=== PATIENT | male | born 1965 | race African-American/Black ===

== ENCOUNTER 2020-07-05 09:20 | Inpatient (IN) | payer MEDICARE, MEDICAID ==
[2020-07-05] MEDS ORDERED: Nitroglycerin 2% Ointment 1 INCH/1 GM Packet ONE (10:33)
[2020-07-05 10:39] LABS: #Eosinphils 0.4 10x3/uL (0.0-0.5); #Monocytes 0.3 10x3/uL (0.0-1.1); #Neutrophils 2.7 10x3/uL (1.5-8.4); %Basophils 0.9 % (0.0-2.0); %Eosinophils 8.3 % (0.0-6.0); %Lymphocytes 25.1 % (18.0-47.0); %Monocytes 5.9 % (0.0-10.0); %Neutrophils 59.6 % (40.0-75.0); Hemoglobin 7.5 g/dL (13.5-17.5); Mean Corpuscular HGB CONC 32.2 g/dL (32.0-36.0); Mean Corpuscular Hemoglobin 27.9 pg (27.0-33.0); Mean Corpuscular Volume 86.6 fl (81.2-95.1); Mean Platelet Volume 10.3 fl (7.4-10.4); Platelet Count 128 10x3/uL (150-450); RBC Distribution Width 16.7 % (11.5-14.5); Red Blood Cell (RBC) Count 2.69 10x6/uL (4.32-5.72); White Blood Cell (WBC) Count 4.6 10x3/uL (3.5-10.5)
[2020-07-05 10:51] LABS: ALT (SGPT) 6 U/L (8-55); AST (SGOT) 18 U/L (5-34); Albumin 3.7 g/dL (3.5-5.0); Alkaline Phosphatase 86 U/L (40-110); Anion Gap 16 mmol/L (10-20); BUN (Urea Nitrogen) 24 mg/dL (8.4-25.7); Bilirubin, Total 0.9 mg/dL (0.2-1.2); Calc. Creatinine Clearance 0 mL/min (70-130); Calcium 9.2 mg/dL (7.8-10.44); Carbon Dioxide 33 mmol/L (22-29); Chloride 91 mmol/L (98-107); Globulin 4.1 g/dL (2.4-3.5); Glucose 66 mg/dL (70-105); Protein, Total 7.8 g/dL (6.0-8.3); Sodium 136 mmol/L (136-145)
[2020-07-05 11:15] LABS: CKMB 3.2 ng/mL (0-6.6)
[2020-07-05] MEDS ORDERED: Furosemide 40 MG/4 ML VIAL ONE (12:27)
[2020-07-05] MEDS ORDERED: Aspirin Chewable 81 MG TAB ONE (12:27)
[2020-07-05] MEDS ORDERED: Magnesium Citrate 300 ML BOT ONE (12:49)
[2020-07-05] MEDS ORDERED: Acetaminophen 325 MG TAB PO PRN (13:17)
[2020-07-05] MEDS ORDERED: Senokot S 8.6-50 MG TAB PO PRN (13:17)
[2020-07-05] MEDS ORDERED: Ondansetron PF 4 MG/2 ML Vial IVP PRN (13:17)
[2020-07-05] MEDS ORDERED: HYDROcodone/Acetaminophen 10/325 mg Tablet PO PRN (13:22)
[2020-07-05 14:45] LABS: SARS-CoV-2 NAA Rapid Test Not Detected (NotDetected)
[2020-07-05 16:00] LABS: Troponin I 0.137 ng/mL (< 0.028)
[2020-07-05] MEDS ORDERED: Heparin 10,000 UNITS/ 10 ML VIAL FS PRN (16:33)
[2020-07-05 16:40] VITALS: BMI 19.9
[2020-07-05] MEDS ORDERED: diphenhydrAMINE 25 MG CAP PO PRN (17:31)
[2020-07-05 19:08] LABS: Troponin I 0.142 ng/mL (< 0.028)
[2020-07-05] MEDS: hydrALAZINE 25 MG TAB PO SCH ×2 (21:27→21:29)
[2020-07-06] MEDS ORDERED: hydrALAZINE 20 MG/ML VIAL SLOW IVP SCH (04:45)
[2020-07-06 05:45] LABS: #Basophils 0.1 10x3/uL (0.0-0.2); #Eosinphils 0.4 10x3/uL (0.0-0.5); #Monocytes 0.2 10x3/uL (0.0-1.1); #Neutrophils 1.9 10x3/uL (1.5-8.4); %Basophils 1.4 % (0.0-2.0); %Eosinophils 10.7 % (0.0-6.0); %Lymphocytes 26.6 % (18.0-47.0); %Monocytes 6.9 % (0.0-10.0); %Neutrophils 54.1 % (40.0-75.0); Hemoglobin 7.5 g/dL (13.5-17.5); Mean Corpuscular HGB CONC 32.1 g/dL (32.0-36.0); Mean Corpuscular Hemoglobin 27.7 pg (27.0-33.0); Mean Corpuscular Volume 86.3 fl (81.2-95.1); Mean Platelet Volume 11.1 fl (7.4-10.4); Platelet Count 135 10x3/uL (150-450); RBC Distribution Width 16.4 % (11.5-14.5); Red Blood Cell (RBC) Count 2.71 10x6/uL (4.32-5.72); White Blood Cell (WBC) Count 3.5 10x3/uL (3.5-10.5)
[2020-07-06] MEDS ORDERED: Magnesium Citrate 300 ML BOT PO SCH (05:45)
[2020-07-06 06:02] LABS: ALT (SGPT) 6 U/L (8-55); AST (SGOT) 17 U/L (5-34); Albumin 3.3 g/dL (3.5-5.0); Alkaline Phosphatase 78 U/L (40-110); Anion Gap 15 mmol/L (10-20); BUN (Urea Nitrogen) 14 mg/dL (8.4-25.7); Bilirubin, Total 0.7 mg/dL (0.2-1.2); Calc. Creatinine Clearance 14 mL/min (70-130); Carbon Dioxide 30 mmol/L (22-29); Chloride 94 mmol/L (98-107); Glucose 86 mg/dL (70-105); Potassium 3.9 mmol/L (3.5-5.1); Protein, Total 7.3 g/dL (6.0-8.3); Sodium 135 mmol/L (136-145)
[2020-07-06] MEDS ORDERED: NIFEdipine XL 30 MG TAB PO SCH (07:30)
[2020-07-06] MEDS ORDERED: Bisacodyl 5 MG TAB PO PRN (08:25)
[2020-07-06] MEDS ORDERED: Mineral Oil ENEMA PR SCH (09:00)
[2020-07-06] MEDS ORDERED: Amlodipine 10 MG TAB PO SCH (09:00)
[2020-07-06] MEDS: Lisinopril 20 MG TAB PO SCH (09:32)
[2020-07-06] MEDS: Enoxaparin Sodium 30 MG/0.3 ML SYRINGE SC SCH (09:35)
[2020-07-06] MEDS ORDERED: Sodium Bicarbonate 2.5 MEQ/5 ML VIAL ONE (13:58)
[2020-07-06] MEDS ORDERED: Lidocaine 1% PF 5 ML VIAL ONE (13:59)
[2020-07-06] MEDS: hydrALAZINE 20 MG/ML VIAL SLOW IVP PRN (16:54)
[2020-07-06] MEDS ORDERED: Polyethylene Glycol 3350 17 GM Packet PO PRN (17:16)
[2020-07-06] MEDS: NIFEdipine XL 30 MG TAB PO SCH (19:35)
[2020-07-06] MEDS: Docusate 100 MG CAP PO SCH (21:03)
[2020-07-06 21:29] LABS: Pleural Fluid, Protein 3.3 g/dL
[2020-07-07] MEDS ORDERED: NIFEdipine XL 30 MG TAB PO SCH (00:15)
[2020-07-07] MEDS: NIFEdipine XL 30 MG TAB PO SCH (00:15)
[2020-07-07] MEDS: hydrALAZINE 20 MG/ML VIAL SLOW IVP PRN (03:04)
[2020-07-07 05:13] LABS: #Basophils 0.1 10x3/uL (0.0-0.2); #Eosinphils 0.5 10x3/uL (0.0-0.5); #Monocytes 0.4 10x3/uL (0.0-1.1); #Neutrophils 3.8 10x3/uL (1.5-8.4); %Basophils 0.9 % (0.0-2.0); %Eosinophils 7.9 % (0.0-6.0); %Lymphocytes 17.5 % (18.0-47.0); %Monocytes 7.2 % (0.0-10.0); %Neutrophils 66.3 % (40.0-75.0); Hemoglobin 7.8 g/dL (13.5-17.5); Mean Corpuscular HGB CONC 32.1 g/dL (32.0-36.0); Mean Corpuscular Hemoglobin 27.7 pg (27.0-33.0); Mean Corpuscular Volume 86.2 fl (81.2-95.1); Mean Platelet Volume 10.1 fl (7.4-10.4); Platelet Count 156 10x3/uL (150-450); RBC Distribution Width 16.6 % (11.5-14.5); Red Blood Cell (RBC) Count 2.82 10x6/uL (4.32-5.72); White Blood Cell (WBC) Count 5.7 10x3/uL (3.5-10.5)
[2020-07-07 05:22] LABS: Anion Gap 14 mmol/L (10-20); BUN (Urea Nitrogen) 21 mg/dL (8.4-25.7); Calc. Creatinine Clearance 11 mL/min (70-130); Calcium 9.2 mg/dL (7.8-10.44); Carbon Dioxide 31 mmol/L (22-29); Chloride 94 mmol/L (98-107); Glucose 98 mg/dL (70-105); Potassium 4.3 mmol/L (3.5-5.1); Sodium 135 mmol/L (136-145)
[2020-07-07] MEDS ORDERED: Epoetin (ESRD) 20,000 UNITS/ML SC SCH (08:15)
[2020-07-07] MEDS: Docusate 100 MG CAP PO SCH ×2 (08:32→09:07)
[2020-07-07] MEDS: Enoxaparin Sodium 30 MG/0.3 ML SYRINGE SC SCH (08:33)
[2020-07-07] MEDS: Calcium Acetate 667 MG CAP PO SCH ×2 (08:33→14:55)
[2020-07-07] MEDS ORDERED: NIFEdipine XL 60 MG TAB PO SCH (09:00)
[2020-07-07] MEDS ORDERED: Non-Formulary Medication 1 EACH (Lisinopril [Lisinopril] 40 MG Tablet) PO SCH (09:00)
[2020-07-07] MEDS ORDERED: Levothyroxine Sodium 75 MCG TAB PO SCH (09:00)
[2020-07-07] MEDS ORDERED: Aspirin Chewable 81 MG TAB PO SCH (09:00)
[2020-07-07] MEDS ORDERED: EPOETIN ALFA-EPBX (ESRD) 2,000 UNIT/ML VIAL SC SCH (09:00)
[2020-07-07] MEDS ORDERED: EPOETIN ALFA-EPBX (ESRD) 3,000 UNIT/ML VIAL SC SCH (09:00)
[2020-07-07] MEDS: Lisinopril 20 MG TAB PO SCH (09:08)
[2020-07-07 11:59] VITALS: BP 157/91; TEMP 98
[2020-07-07] MEDS ORDERED: Carvedilol 3.125 MG TAB PO SCH (17:00)
[2020-07-08] MEDS ORDERED: Ferrous Sulfate 325 MG TAB PO SCH (08:00)
== END 2020-07-07 14:35 | disposition home or self-care (01) | DRG 291 ==
LOC: CSHERS 09:20 → CSHTELE 14:01 → INTOOBSV 14:01 → OBSVTOIN 07-06 17:20
PROVIDERS: ADMIT Internal Medicine; ATTEND Family Medicine
PROC: 5A1D70Z Performance of Urinary Filtration, Intermittent, Less than 6 Hours Per Day (ICD-10-PCS; 2020-07-05)
PROC: 0W9B3ZZ Drainage of Left Pleural Cavity, Percutaneous Approach (ICD-10-PCS; principal; 2020-07-06)
PROC: 5A1D70Z Performance of Urinary Filtration, Intermittent, Less than 6 Hours Per Day (ICD-10-PCS; 2020-07-07)
DX: I13.2 Hypertensive heart and chronic kidney disease with heart failure and with stage 5 chronic kidney disease, or end stage renal disease (principal); N18.6 End stage renal disease; J96.01 Acute respiratory failure with hypoxia; I50.22 Chronic systolic (congestive) heart failure; J90 Pleural effusion, not elsewhere classified; E11.22 Type 2 diabetes mellitus with diabetic chronic kidney disease; Z99.2 Dependence on renal dialysis; Z91.15 Patient's noncompliance with renal dialysis; E78.5 Hyperlipidemia, unspecified; I73.9 Peripheral vascular disease, unspecified; Z89.512 Acquired absence of left leg below knee; K59.00 Constipation, unspecified; I42.8 Other cardiomyopathies; Z91.010 Allergy to peanuts; D63.1 Anemia in chronic kidney disease; Z20.822 Contact with and (suspected) exposure to COVID-19; E21.3 Hyperparathyroidism, unspecified
CPT/HCPCS: 0240U; 36415; 71045; 71046; 76942; 80048; 80053; 82150; 82553; 82945; 83615; 83880; 84157; 84484; 85025; 87070; 87205; 90935; 93005; 93306; 94760; 96374; 96376; G0257; G0378; J0360; J1644; J1940

== ENCOUNTER 2020-07-18 10:40 | Emergency (ER) | payer MEDICARE, MEDICAID | END 2020-07-18 12:46 | disposition home or self-care (01) | LOC: CSHERS 10:40 | DX: R06.02 Shortness of breath (principal); E11.22 Type 2 diabetes mellitus with diabetic chronic kidney disease; I12.0 Hypertensive chronic kidney disease with stage 5 chronic kidney disease or end stage renal disease; N18.6 End stage renal disease; E03.9 Hypothyroidism, unspecified; Z99.2 Dependence on renal dialysis | CPT/HCPCS: 71045; 93005 ==

== ENCOUNTER 2021-01-14 23:32 | Inpatient (IN) | payer MEDICARE, MEDICAID ==
[2021-01-15 01:04] LABS: #Eosinphils 0.3 10x3/uL (0.0-0.5); #Monocytes 0.5 10x3/uL (0.0-1.1); %Basophils 0.6 % (0.0-2.0); %Eosinophils 3.8 % (0.0-6.0); %Lymphocytes 15.7 % (18.0-47.0); %Monocytes 7.7 % (0.0-10.0); %Neutrophils 71.8 % (40.0-75.0); Hemoglobin 10.2 g/dL (13.5-17.5); Mean Corpuscular HGB CONC 32.6 g/dL (32.0-36.0); Mean Corpuscular Hemoglobin 29.5 pg (27.0-33.0); Mean Corpuscular Volume 90.5 fl (81.2-95.1); Mean Platelet Volume 9.9 fl (7.4-10.4); Platelet Count 149 10x3/uL (150-450); RBC Distribution Width 14.9 % (11.5-14.5); Red Blood Cell (RBC) Count 3.46 10x6/uL (4.32-5.72)
[2021-01-15 01:29] LABS: ALT (SGPT) 7 U/L (8-55); AST (SGOT) 17 U/L (5-34); Albumin 2.9 g/dL (3.5-5.0); Alkaline Phosphatase 119 U/L (40-110); Anion Gap 20 mmol/L (10-20); BUN (Urea Nitrogen) 40 mg/dL (8.4-25.7); Bilirubin, Total 1.4 mg/dL (0.2-1.2); Calc. Creatinine Clearance 0 mL/min (70-130); Carbon Dioxide 23 mmol/L (22-29); Chloride 98 mmol/L (98-107); Globulin 4.9 g/dL (2.4-3.5); Glucose 208 mg/dL (70-105); Potassium 4.1 mmol/L (3.5-5.1); Protein, Total 7.8 g/dL (6.0-8.3); Sodium 137 mmol/L (136-145)
[2021-01-15 01:37] LABS: CKMB 1.8 ng/mL (0-6.6)
[2021-01-15] MEDS ORDERED: Acetaminophen 325 MG TAB PO PRN (05:12)
[2021-01-15] MEDS ORDERED: Dextrose 5% in Water 1,000 ML IV PRN (05:12)
[2021-01-15] MEDS ORDERED: Calcium Carbonate 500 MG ChewTAB PO PRN ×2 (05:12→05:16)
[2021-01-15] MEDS ORDERED: Ondansetron PF 4 MG/2 ML Vial IVP PRN (05:12)
[2021-01-15] MEDS ORDERED: Dextrose 50% Abboject 50 ML SYRINGE SLOW IVP PRN (05:12)
[2021-01-15] MEDS ORDERED: Senokot S 8.6-50 MG TAB PO PRN (05:12)
[2021-01-15] MEDS ORDERED: HumaLOG 300 UNITS/3 ML VIAL SC PRN (05:12)
[2021-01-15] MEDS ORDERED: Guaifenesin DM 100-10/5 ML UDCUP PO PRN (05:12)
[2021-01-15] MEDS ORDERED: Nitroglycerin 2% Ointment 1 INCH/1 GM Packet TOP SCH (05:30)
[2021-01-15] MEDS: HYDROcodone/Acetaminophen 5/325 mg Tablet PO SCH (05:47)
[2021-01-15] MEDS: Levothyroxine Sodium 75 MCG TAB PO SCH (05:53)
[2021-01-15 07:42] VITALS: BMI 22.2
[2021-01-15] MEDS ORDERED: EPOETIN ALFA-EPBX (ESRD) 10,000 UNIT/ML VIAL SC SCH (09:00)
[2021-01-15] MEDS ORDERED: Heparin 5,000 UNITS/ML VIAL SC SCH (09:00)
[2021-01-15] MEDS ORDERED: NIFEdipine XL 60 MG TAB PO SCH (09:00)
[2021-01-15] MEDS ORDERED: FLU VACC QS2021-22(6MOS UP)/PF 60 MCG/0.5 ML SYRINGE IM ONE (09:15)
[2021-01-15] MEDS: Sevelamer Carbonate 800 MG TAB PO SCH ×3 (10:16→17:58)
[2021-01-15] MEDS: Folic Acid 1 MG TAB PO SCH (10:16)
[2021-01-15] MEDS: Aspirin 81 mg Enteric Coated Tablet PO SCH (10:16)
[2021-01-15] MEDS: Carvedilol 6.25 MG TAB PO SCH ×2 (10:16→17:58)
[2021-01-15] MEDS: Thiamine 100 MG TAB PO SCH (10:16)
[2021-01-15] MEDS: Heparin 5,000 UNITS/ML VIAL SC SCH ×2 (10:18→21:00)
[2021-01-15] MEDS: Sacubitril 49 MG/Valsartan 51 MG TABLET PO SCH ×2 (13:17→21:00)
[2021-01-15] MEDS ORDERED: hydrALAZINE 20 MG/ML VIAL SLOW IVP PRN (16:59)
[2021-01-16] MEDS ORDERED: HYDROcodone/Acetaminophen 5/325 mg Tablet PO SCH ×3 (02:15→22:30)
[2021-01-16 06:14] LABS: Anion Gap 20 mmol/L (10-20); BUN (Urea Nitrogen) 47 mg/dL (8.4-25.7); Calc. Creatinine Clearance 11 mL/min (70-130); Carbon Dioxide 22 mmol/L (22-29); Chloride 98 mmol/L (98-107); Glucose 179 mg/dL (70-105); Potassium 3.9 mmol/L (3.5-5.1); Sodium 136 mmol/L (136-145)
[2021-01-16] MEDS: Levothyroxine Sodium 75 MCG TAB PO SCH (06:51)
[2021-01-16] MEDS: HYDROcodone/Acetaminophen 5/325 mg Tablet PO SCH (06:54)
[2021-01-16 07:07] LABS: Troponin I 0.147 ng/mL (< 0.028)
[2021-01-16] MEDS: Folic Acid 1 MG TAB PO SCH (08:40)
[2021-01-16] MEDS: Aspirin 81 mg Enteric Coated Tablet PO SCH (08:40)
[2021-01-16] MEDS: Carvedilol 6.25 MG TAB PO SCH ×3 (08:42→17:20)
[2021-01-16] MEDS: Thiamine 100 MG TAB PO SCH (08:43)
[2021-01-16] MEDS: Sevelamer Carbonate 800 MG TAB PO SCH ×3 (08:43→17:20)
[2021-01-16] MEDS: Triple Antibiotic Ointment 30 GM TUBE TOP SCH ×2 (09:06→22:10)
[2021-01-16] MEDS: Heparin 5,000 UNITS/ML VIAL SC SCH ×2 (09:06→21:58)
[2021-01-16] MEDS: Sacubitril 49 MG/Valsartan 51 MG TABLET PO SCH ×2 (10:30→21:52)
[2021-01-16 11:54] LABS: Hemoglobin A1c 5.8 % (4.0-6.0)
[2021-01-16 20:38] LABS: SARS-CoV-2 PCR by NAA Not Detected (NotDetected)
[2021-01-16] MEDS ORDERED: HYDROcodone/Acetaminophen 7.5/325 mg Tablet PO SCH (22:00)
[2021-01-17] MEDS: Levothyroxine Sodium 100 MCG TAB PO SCH (06:09)
[2021-01-17] MEDS ORDERED: HYDROcodone/Acetaminophen 5/325 mg Tablet PO SCH (06:45)
[2021-01-17] MEDS: Sacubitril 49 MG/Valsartan 51 MG TABLET PO SCH ×2 (09:45→21:26)
[2021-01-17] MEDS: Triple Antibiotic Ointment 30 GM TUBE TOP SCH (09:46)
[2021-01-17] MEDS: Folic Acid 1 MG TAB PO SCH (09:46)
[2021-01-17] MEDS: Sevelamer Carbonate 800 MG TAB PO SCH ×3 (09:46→16:10)
[2021-01-17] MEDS: Thiamine 100 MG TAB PO SCH (09:46)
[2021-01-17] MEDS: Aspirin 81 mg Enteric Coated Tablet PO SCH (09:46)
[2021-01-17] MEDS: Carvedilol 6.25 MG TAB PO SCH ×2 (09:46→16:10)
[2021-01-17] MEDS: Heparin 5,000 UNITS/ML VIAL SC SCH ×2 (09:54→21:26)
[2021-01-18] MEDS: Triple Antibiotic Ointment 30 GM TUBE TOP SCH ×4 (00:12→23:00)
[2021-01-18] MEDS: Levothyroxine Sodium 100 MCG TAB PO SCH (06:07)
[2021-01-18 06:24] LABS: Lactic Acid 2.2 mmol/L (0.5-2.2)
[2021-01-18 06:34] LABS: Anion Gap 19 mmol/L (10-20); BUN (Urea Nitrogen) 38 mg/dL (8.4-25.7); Calc. Creatinine Clearance 12 mL/min (70-130); Carbon Dioxide 23 mmol/L (22-29); Chloride 94 mmol/L (98-107); Potassium 4.1 mmol/L (3.5-5.1); Sodium 132 mmol/L (136-145)
[2021-01-18 06:35] LABS: Glucose 157 mg/dL (70-105)
[2021-01-18] MEDS: Aspirin 81 mg Enteric Coated Tablet PO SCH (08:31)
[2021-01-18] MEDS: Folic Acid 1 MG TAB PO SCH (08:31)
[2021-01-18] MEDS: Thiamine 100 MG TAB PO SCH (08:32)
[2021-01-18] MEDS: Carvedilol 6.25 MG TAB PO SCH ×2 (08:32→16:59)
[2021-01-18] MEDS: Sevelamer Carbonate 800 MG TAB PO SCH ×3 (08:32→16:59)
[2021-01-18] MEDS: Heparin 5,000 UNITS/ML VIAL SC SCH ×2 (08:32→23:00)
[2021-01-18] MEDS: Sacubitril 49 MG/Valsartan 51 MG TABLET PO SCH ×2 (08:32→23:00)
[2021-01-18] MEDS ORDERED: Tuberculin PPD 0.1 ML VIAL I-DERMAL SCH (11:30)
[2021-01-18 11:49] LABS: Hep B Surf Ag Non-Reactive S/CO (NonReactive)
[2021-01-18 11:54] LABS: HBSAg Index 0.22 S/CO (0-0.99)
[2021-01-18 14:59] LABS: Hep B Core Total Ab Non-Reactive (NonReactive); Hep B Core Total Index 0.26 S/CO (0-0.79); Hep C IgG Ab Non-Reactive (NonReactive); Hep C Index 0.22 S/CO (0-0.79)
[2021-01-18 15:12] LABS: Hep B Surf AB Reactive (NonReactive)
[2021-01-19] MEDS: Levothyroxine Sodium 100 MCG TAB PO SCH (05:25)
[2021-01-19] MEDS ORDERED: EPOETIN ALFA-EPBX (ESRD) 10,000 UNIT/ML VIAL SC SCH (09:00)
[2021-01-19] MEDS: Folic Acid 1 MG TAB PO SCH (09:44)
[2021-01-19] MEDS: Carvedilol 6.25 MG TAB PO SCH ×2 (09:44→17:38)
[2021-01-19] MEDS: Sacubitril 49 MG/Valsartan 51 MG TABLET PO SCH ×2 (09:44→22:15)
[2021-01-19] MEDS: Thiamine 100 MG TAB PO SCH (09:45)
[2021-01-19] MEDS: Heparin 5,000 UNITS/ML VIAL SC SCH ×2 (09:45→22:14)
[2021-01-19] MEDS: Aspirin 81 mg Enteric Coated Tablet PO SCH (09:45)
[2021-01-19] MEDS: Sevelamer Carbonate 800 MG TAB PO SCH ×3 (09:47→17:00)
[2021-01-19] MEDS: Triple Antibiotic Ointment 30 GM TUBE TOP SCH ×2 (09:51→22:15)
[2021-01-20] MEDS: Levothyroxine Sodium 100 MCG TAB PO SCH (07:35)
[2021-01-20] MEDS ORDERED: READ PPD TEST SITE PO SCH (09:00)
[2021-01-20] MEDS: Carvedilol 6.25 MG TAB PO SCH ×2 (14:29→19:11)
[2021-01-20] MEDS: Sevelamer Carbonate 800 MG TAB PO SCH ×3 (14:29→19:11)
[2021-01-20] MEDS: Aspirin 81 mg Enteric Coated Tablet PO SCH (14:30)
[2021-01-20] MEDS: Folic Acid 1 MG TAB PO SCH (14:30)
[2021-01-20] MEDS: Heparin 5,000 UNITS/ML VIAL SC SCH ×2 (14:30→20:37)
[2021-01-20] MEDS: Triple Antibiotic Ointment 30 GM TUBE TOP SCH ×2 (14:30→20:38)
[2021-01-20] MEDS: Thiamine 100 MG TAB PO SCH (14:31)
[2021-01-20] MEDS: Sacubitril 49 MG/Valsartan 51 MG TABLET PO SCH ×2 (14:37→20:38)
[2021-01-20] MEDS: HYDROcodone/Acetaminophen 5/325 mg Tablet PO PRN ×2 (16:09→22:17)
[2021-01-21] MEDS: HYDROcodone/Acetaminophen 5/325 mg Tablet PO PRN ×2 (05:17→12:02)
[2021-01-21] MEDS: Levothyroxine Sodium 100 MCG TAB PO SCH (05:19)
[2021-01-21] MEDS: Folic Acid 1 MG TAB PO SCH (09:29)
[2021-01-21] MEDS: Aspirin 81 mg Enteric Coated Tablet PO SCH (09:30)
[2021-01-21] MEDS: Ferrous Sulfate 325 MG TAB PO SCH (09:30)
[2021-01-21] MEDS: Carvedilol 6.25 MG TAB PO SCH ×2 (09:30→17:40)
[2021-01-21] MEDS: Sacubitril 49 MG/Valsartan 51 MG TABLET PO SCH ×2 (09:30→20:32)
[2021-01-21] MEDS: Thiamine 100 MG TAB PO SCH (09:30)
[2021-01-21] MEDS: Sevelamer Carbonate 800 MG TAB PO SCH ×3 (09:44→17:40)
[2021-01-21] MEDS: Heparin 5,000 UNITS/ML VIAL SC SCH ×2 (09:45→20:32)
[2021-01-21] MEDS: Triple Antibiotic Ointment 30 GM TUBE TOP SCH ×3 (09:51→20:33)
[2021-01-22] MEDS: Levothyroxine Sodium 100 MCG TAB PO SCH (05:37)
[2021-01-22] MEDS: HYDROcodone/Acetaminophen 5/325 mg Tablet PO PRN ×3 (06:24→16:23)
[2021-01-22] MEDS: Thiamine 100 MG TAB PO SCH (09:22)
[2021-01-22] MEDS: Aspirin 81 mg Enteric Coated Tablet PO SCH (09:22)
[2021-01-22] MEDS: Folic Acid 1 MG TAB PO SCH (09:22)
[2021-01-22] MEDS: Heparin 5,000 UNITS/ML VIAL SC SCH (09:23)
[2021-01-22] MEDS: Sacubitril 49 MG/Valsartan 51 MG TABLET PO SCH ×2 (09:23→20:31)
[2021-01-22] MEDS: Triple Antibiotic Ointment 30 GM TUBE TOP SCH (09:23)
[2021-01-22] MEDS: Sevelamer Carbonate 800 MG TAB PO SCH ×3 (09:23→16:23)
[2021-01-22] MEDS: Ferrous Sulfate 325 MG TAB PO SCH (09:23)
[2021-01-22] MEDS: Carvedilol 6.25 MG TAB PO SCH ×2 (09:23→16:22)
[2021-01-23] MEDS: HYDROcodone/Acetaminophen 5/325 mg Tablet PO PRN ×4 (00:01→20:58)
[2021-01-23] MEDS: Levothyroxine Sodium 100 MCG TAB PO SCH (06:20)
[2021-01-23] MEDS: Thiamine 100 MG TAB PO SCH (08:55)
[2021-01-23] MEDS: Carvedilol 6.25 MG TAB PO SCH ×2 (08:55→18:42)
[2021-01-23] MEDS: Folic Acid 1 MG TAB PO SCH (08:55)
[2021-01-23] MEDS: Sacubitril 49 MG/Valsartan 51 MG TABLET PO SCH ×2 (08:55→20:03)
[2021-01-23] MEDS: Aspirin 81 mg Enteric Coated Tablet PO SCH (08:55)
[2021-01-23] MEDS: Enoxaparin Sodium 30 MG/0.3 ML SYRINGE SC SCH (08:55)
[2021-01-23] MEDS: Ferrous Sulfate 325 MG TAB PO SCH (08:55)
[2021-01-23] MEDS: Triple Antibiotic Ointment 30 GM TUBE TOP SCH ×3 (08:56→20:04)
[2021-01-23] MEDS: Sevelamer Carbonate 800 MG TAB PO SCH ×3 (08:56→18:42)
[2021-01-24] MEDS: Levothyroxine Sodium 100 MCG TAB PO SCH (05:16)
[2021-01-24] MEDS: Sevelamer Carbonate 800 MG TAB PO SCH ×3 (08:13→17:31)
[2021-01-24] MEDS: Sacubitril 49 MG/Valsartan 51 MG TABLET PO SCH ×2 (08:13→21:39)
[2021-01-24] MEDS: Ferrous Sulfate 325 MG TAB PO SCH (08:13)
[2021-01-24] MEDS: Folic Acid 1 MG TAB PO SCH (08:13)
[2021-01-24] MEDS: HYDROcodone/Acetaminophen 5/325 mg Tablet PO PRN ×2 (08:13→17:31)
[2021-01-24] MEDS: Triple Antibiotic Ointment 30 GM TUBE TOP SCH ×2 (08:14→21:40)
[2021-01-24] MEDS: Carvedilol 6.25 MG TAB PO SCH ×2 (08:14→17:30)
[2021-01-24] MEDS: Aspirin 81 mg Enteric Coated Tablet PO SCH (08:14)
[2021-01-24] MEDS: Enoxaparin Sodium 30 MG/0.3 ML SYRINGE SC SCH (08:14)
[2021-01-24] MEDS: Thiamine 100 MG TAB PO SCH (08:14)
[2021-01-24 11:46] LABS: #Basophils 0.1 10x3/uL (0.0-0.2); #Eosinphils 0.2 10x3/uL (0.0-0.5); #Monocytes 0.4 10x3/uL (0.0-1.1); #Neutrophils 3.8 10x3/uL (1.5-8.4); %Eosinophils 3.8 % (0.0-6.0); %Lymphocytes 20.4 % (18.0-47.0); %Monocytes 7.5 % (0.0-10.0); Hemoglobin 6.8 g/dL (13.5-17.5); Mean Corpuscular HGB CONC 32.1 g/dL (32.0-36.0); Mean Corpuscular Hemoglobin 29.3 pg (27.0-33.0); Mean Corpuscular Volume 91.4 fl (81.2-95.1); Mean Platelet Volume 10.7 fl (7.4-10.4); RBC Distribution Width 14.2 % (11.5-14.5); Red Blood Cell (RBC) Count 2.32 10x6/uL (4.32-5.72); White Blood Cell (WBC) Count 5.7 10x3/uL (3.5-10.5)
[2021-01-24 11:48] LABS: Platelet Count 119 10x3/uL (150-450)
[2021-01-24 12:05] LABS: Albumin 2.5 g/dL (3.5-5.0); Anion Gap 15 mmol/L (10-20); BUN (Urea Nitrogen) 21 mg/dL (8.4-25.7); BUN/Creatinine Ratio 5.32; Calc. Creatinine Clearance 21 mL/min (70-130); Calcium 8.7 mg/dL (7.8-10.44); Carbon Dioxide 27 mmol/L (22-29); Chloride 97 mmol/L (98-107); Glucose 150 mg/dL (70-105); Phosphorus 4.6 mg/dL (2.3-4.7); Potassium 3.6 mmol/L (3.5-5.1); Sodium 135 mmol/L (136-145)
[2021-01-25] MEDS: Levothyroxine Sodium 100 MCG TAB PO SCH (05:07)
[2021-01-25 08:12] LABS: Hemoglobin 7.3 g/dL (13.5-17.5)
[2021-01-25] MEDS: HYDROcodone/Acetaminophen 5/325 mg Tablet PO PRN (08:58)
[2021-01-25] MEDS: Sevelamer Carbonate 800 MG TAB PO SCH ×4 (08:59→17:27)
[2021-01-25] MEDS: NIFEdipine XL 30 MG TAB PO SCH ×2 (09:58→20:28)
[2021-01-25] MEDS: Ferrous Sulfate 325 MG TAB PO SCH (09:58)
[2021-01-25] MEDS: Folic Acid 1 MG TAB PO SCH (09:59)
[2021-01-25] MEDS: Thiamine 100 MG TAB PO SCH (09:59)
[2021-01-25] MEDS: Carvedilol 6.25 MG TAB PO SCH ×2 (10:09→18:38)
[2021-01-25] MEDS: Aspirin 81 mg Enteric Coated Tablet PO SCH (10:10)
[2021-01-25] MEDS: Enoxaparin Sodium 30 MG/0.3 ML SYRINGE SC SCH (10:11)
[2021-01-25] MEDS: Sacubitril 49 MG/Valsartan 51 MG TABLET PO SCH ×2 (10:11→20:29)
[2021-01-25] MEDS: Triple Antibiotic Ointment 30 GM TUBE TOP SCH ×2 (16:36→20:29)
[2021-01-26] MEDS: HYDROcodone/Acetaminophen 5/325 mg Tablet PO PRN ×3 (01:19→20:46)
[2021-01-26] MEDS: Levothyroxine Sodium 100 MCG TAB PO SCH (05:11)
[2021-01-26 08:25] LABS: #Eosinphils 0.2 10x3/uL (0.0-0.5); #Monocytes 0.5 10x3/uL (0.0-1.1); #Neutrophils 3.5 10x3/uL (1.5-8.4); %Basophils 0.7 % (0.0-2.0); %Eosinophils 4.2 % (0.0-6.0); %Lymphocytes 21.8 % (18.0-47.0); %Monocytes 8.6 % (0.0-10.0); %Neutrophils 64.3 % (40.0-75.0); Hemoglobin 6.9 g/dL (13.5-17.5); Mean Corpuscular HGB CONC 31.9 g/dL (32.0-36.0); Mean Corpuscular Volume 90.8 fl (81.2-95.1); Mean Platelet Volume 11.2 fl (7.4-10.4); Platelet Count 128 10x3/uL (150-450); RBC Distribution Width 14.2 % (11.5-14.5); Red Blood Cell (RBC) Count 2.38 10x6/uL (4.32-5.72); White Blood Cell (WBC) Count 5.5 10x3/uL (3.5-10.5)
[2021-01-26] MEDS ORDERED: EPOETIN ALFA-EPBX (ESRD) 10,000 UNIT/ML VIAL IVP PRN (08:59)
[2021-01-26] MEDS ORDERED: EPOETIN ALFA-EPBX (ESRD) 10,000 UNIT/ML VIAL SC SCH (09:00)
[2021-01-26] MEDS ORDERED: Ergocalciferol 1.25 MG(50,000 UNITS) CAP PO SCH (09:00)
[2021-01-26 09:05] LABS: ALT (SGPT) 28 U/L (8-55); AST (SGOT) 44 U/L (5-34); Albumin 2.6 g/dL (3.5-5.0); Alkaline Phosphatase 96 U/L (40-110); Anion Gap 17 mmol/L (10-20); BUN (Urea Nitrogen) 28 mg/dL (8.4-25.7); Bilirubin, Total 0.6 mg/dL (0.2-1.2); Calc. Creatinine Clearance 16 mL/min (70-130); Calcium 8.8 mg/dL (7.8-10.44); Carbon Dioxide 26 mmol/L (22-29); Chloride 97 mmol/L (98-107); Globulin 4.1 g/dL (2.4-3.5); Glucose 121 mg/dL (70-105); Magnesium 2.2 mg/dL (1.6-2.6); Phosphorus 6.5 mg/dL (2.3-4.7); Potassium 4.6 mmol/L (3.5-5.1); Protein, Total 6.7 g/dL (6.0-8.3); Sodium 135 mmol/L (136-145)
[2021-01-26] MEDS: Sacubitril 49 MG/Valsartan 51 MG TABLET PO SCH ×2 (11:16→20:46)
[2021-01-26] MEDS: Thiamine 100 MG TAB PO SCH (11:16)
[2021-01-26] MEDS: Ferrous Sulfate 325 MG TAB PO SCH (11:16)
[2021-01-26] MEDS: Folic Acid 1 MG TAB PO SCH (11:16)
[2021-01-26] MEDS: NIFEdipine XL 30 MG TAB PO SCH ×2 (11:16→20:47)
[2021-01-26] MEDS: Enoxaparin Sodium 30 MG/0.3 ML SYRINGE SC SCH (11:17)
[2021-01-26] MEDS: Sevelamer Carbonate 800 MG TAB PO SCH ×3 (11:17→16:48)
[2021-01-26 12:08] LABS: SARS-CoV-2 PCR by NAA Not Detected (NotDetected)
[2021-01-26] MEDS: Carvedilol 6.25 MG TAB PO SCH ×2 (12:24→18:07)
[2021-01-26] MEDS: Aspirin 81 mg Enteric Coated Tablet PO SCH (12:25)
[2021-01-26] MEDS: Triple Antibiotic Ointment 30 GM TUBE TOP SCH (12:25)
[2021-01-27] MEDS: Levothyroxine Sodium 100 MCG TAB PO SCH (05:28)
[2021-01-27] MEDS: HYDROcodone/Acetaminophen 5/325 mg Tablet PO PRN ×2 (08:42→17:54)
[2021-01-27] MEDS: Aspirin 81 mg Enteric Coated Tablet PO SCH (08:43)
[2021-01-27] MEDS: Ferrous Sulfate 325 MG TAB PO SCH (08:43)
[2021-01-27] MEDS: NIFEdipine XL 30 MG TAB PO SCH ×2 (08:43→20:21)
[2021-01-27] MEDS: Thiamine 100 MG TAB PO SCH (08:43)
[2021-01-27] MEDS: Sevelamer Carbonate 800 MG TAB PO SCH ×4 (08:43→17:57)
[2021-01-27] MEDS: Carvedilol 6.25 MG TAB PO SCH ×2 (08:44→17:54)
[2021-01-27] MEDS: Sacubitril 49 MG/Valsartan 51 MG TABLET PO SCH ×2 (08:44→20:20)
[2021-01-27] MEDS: Folic Acid 1 MG TAB PO SCH (08:45)
[2021-01-27] MEDS: Enoxaparin Sodium 30 MG/0.3 ML SYRINGE SC SCH (08:49)
[2021-01-28] MEDS: Levothyroxine Sodium 100 MCG TAB PO SCH (05:20)
[2021-01-28 09:05] LABS: Hemoglobin 7.3 g/dL (13.5-17.5)
[2021-01-28] MEDS: Folic Acid 1 MG TAB PO SCH (10:04)
[2021-01-28] MEDS: Sevelamer Carbonate 800 MG TAB PO SCH ×4 (10:04→19:11)
[2021-01-28] MEDS: Carvedilol 6.25 MG TAB PO SCH ×2 (10:04→19:11)
[2021-01-28] MEDS: NIFEdipine XL 30 MG TAB PO SCH ×2 (10:04→20:21)
[2021-01-28] MEDS: Ferrous Sulfate 325 MG TAB PO SCH (10:04)
[2021-01-28] MEDS: Sacubitril 49 MG/Valsartan 51 MG TABLET PO SCH ×2 (10:05→20:21)
[2021-01-28] MEDS: Aspirin 81 mg Enteric Coated Tablet PO SCH (10:05)
[2021-01-28] MEDS: Thiamine 100 MG TAB PO SCH (10:05)
[2021-01-28] MEDS: Enoxaparin Sodium 30 MG/0.3 ML SYRINGE SC SCH (10:06)
[2021-01-28] MEDS: HYDROcodone/Acetaminophen 5/325 mg Tablet PO PRN ×2 (10:12→20:22)
[2021-01-29] MEDS: Levothyroxine Sodium 100 MCG TAB PO SCH (05:53)
[2021-01-29] MEDS: HYDROcodone/Acetaminophen 5/325 mg Tablet PO PRN (06:51)
[2021-01-29] MEDS: Thiamine 100 MG TAB PO SCH (10:01)
[2021-01-29] MEDS: Folic Acid 1 MG TAB PO SCH (10:02)
[2021-01-29] MEDS: Ferrous Sulfate 325 MG TAB PO SCH (10:02)
[2021-01-29] MEDS: Aspirin 81 mg Enteric Coated Tablet PO SCH (10:02)
[2021-01-29] MEDS: Sevelamer Carbonate 800 MG TAB PO SCH (10:04)
[2021-01-29] MEDS: Enoxaparin Sodium 30 MG/0.3 ML SYRINGE SC SCH (10:04)
[2021-01-29] MEDS: Carvedilol 6.25 MG TAB PO SCH (10:04)
[2021-01-29] MEDS: NIFEdipine XL 30 MG TAB PO SCH (10:04)
[2021-01-29] MEDS: Sacubitril 49 MG/Valsartan 51 MG TABLET PO SCH (10:04)
[2021-01-29 10:07] VITALS: BP 121/82; TEMP 98.2
== END 2021-01-29 11:30 | DRG 291 ==
LOC: CSHERS 23:32 → INTOOBSV 01-15 04:47 → OBSVTOIN 01-15 04:47 → CSHTELE 01-15 04:47 → OBSVTOIN 01-17 11:54
PROVIDERS: ADMIT Student in an Organized Health Care Education/Training Program; ATTEND Hospitalist
PROC: 5A1D70Z Performance of Urinary Filtration, Intermittent, Less than 6 Hours Per Day (ICD-10-PCS; principal; 2021-01-17)
DX: I13.2 Hypertensive heart and chronic kidney disease with heart failure and with stage 5 chronic kidney disease, or end stage renal disease (principal); N18.6 End stage renal disease; R64 Cachexia; N25.81 Secondary hyperparathyroidism of renal origin; E11.22 Type 2 diabetes mellitus with diabetic chronic kidney disease; I50.9 Heart failure, unspecified; Z99.2 Dependence on renal dialysis; Z20.822 Contact with and (suspected) exposure to COVID-19; Z91.15 Patient's noncompliance with renal dialysis; I16.0 Hypertensive urgency; E03.9 Hypothyroidism, unspecified; D69.6 Thrombocytopenia, unspecified; I73.9 Peripheral vascular disease, unspecified; K21.9 Gastro-esophageal reflux disease without esophagitis; G89.29 Other chronic pain; Z88.8 Allergy status to other drugs, medicaments and biological substances; D63.1 Anemia in chronic kidney disease; Z68.22 Body mass index [BMI] 22.0-22.9, adult; Z91.19 Patient's noncompliance with other medical treatment and regimen; E55.9 Vitamin D deficiency, unspecified
CPT/HCPCS: 36415; 36416; 71045; 80048; 80053; 80069; 82306; 82553; 83036; 83605; 83735; 83970; 84100; 84443; 84484; 85014; 85018; 85025; 86704; 86706; 86803; 87340; 90935; 93005; 93010; 96374; G0257; G0378; J0360; J1644; J1650; Q5105; U0003; U0005